=== PATIENT | male | born 1990 | race Caucasian/White ===

== ENCOUNTER 2023-01-10 08:54 | Inpatient (IN) ==
[2023-01-10] MEDS ORDERED: IOPAMIDOL 100 ML BOTTLE IV ONE (08:55)
--- NOTE | 2023-01-10 09:04 | Emergency Department Note ---
HPI General Chief complaint: Nausea/Vomiting/Diarrhea Stated complaint: Abd pain Time Seen by Provider: 01/10/23 09:04 Source: patient Mode of arrival: ambulatory Limitations: no limitations History of Present Illness HPI Narrative: Narrative: Patient is a 32-year-old male with a history significant for pancreatitis who presents to the emergency department due to epigastric abdominal pain, nausea, and vomiting. He states that his symptoms began on Monday after he had been drinking a significant amount of alcohol last week. He states that he began vomiting, but initially did not have any significant abdominal pain. He states that his pain developed soon after and has been worsening since then. He states that he did vomit a small amount of blood and was concerned about an esophageal tear. He denies chest pain, shortness of breath, or any significant pain anywhere other than his abdomen. States that he has developed tremors, but believes that that is due to the pain. He denies a history of alcohol withdrawal, and states that he does not typically drink daily, but did this last week because he had to put his dog down. He denies any other symptoms or concerns at this time. Related Data Home Medications Medication Instructions Recorded Confirmed Restoril tab PO HSP PRN Insomnia 01/11/23 escitalopram oxalate 10 mg tablet 10 mg PO QDAY 01/11/23 01/11/23 (Lexapro) levetiracetam 250 mg tablet 250 mg PO DAILY 01/11/23 01/11/23 (Keppra) metoclopramide HCl 10 mg tablet 10 mg PO QDAY PRN Acid Reflux 01/11/23 01/11/23 (Reglan) Previous Rx's Medication Instructions Recorded albuterol sulfate 90 mcg/actuation 2 puff inhalation Q6H PRN 06/13/22 aerosol inhaler shortness of breath or wheezing #8.5 grams ondansetron 4 mg disintegrating 4 mg PO Q6H PRN nausea and 06/13/22 tablet vomiting #20 tabs omeprazole 20 mg capsule,delayed 20 mg PO QDAY #30 caps 01/13/23 release ondansetron 4 mg disintegrating 4 mg PO Q8H PRN nausea and 01/13/23 tablet vomiting #14 tabs promethazine 25 mg rectal 25 mg OH Q12H PRN nausea and 01/13/23 suppository vomiting #12 ea sucralfate 1 gram tablet (Carafate) See Rx Instructions .Route 01/13/23 .COMPLEX #30 tabs Allergies Allergy/AdvReac Type Severity Reaction Status Date / Time No Known Drug Allergies Allergy Verified 01/10/23 09:02 Review of Systems ROS ROS Narrative: Narrative: Constitutional: Denies fever or weakness Eyes: Denies eye pain or vision change ENT ED: Denies throat pain, hearing loss or rhinorrhea Cardiovascular: Denies chest pain, dyspnea on exertion, orthopnea or edema Respiratory: Denies shortness of breath or cough Gastrointestinal: Reports abdominal pain, nausea and vomiting; Denies diarrhea, constipation, hematochezia or melena Genitourinary: Denies dysuria, frequency or hematuria Musculoskeletal: Denies back pain or myalgia Integumentary: Denies rash or lesions Neurological: Denies headache, weakness, numbness, confusion, abnormal gait or dizziness PFS Narrative Patient History Narrative: Narrative: Medical/Surgical/Family History All Active Problems (Updated 01/18/23 @ 07:55 by Ramos Tineo MD) Abdominal pain (Acute) Intractable nausea and vomiting (Acute) Pancreatitis (Acute) Breath shortness (Acute) Chest pain (Acute) Pleurisy (Acute) Left upper lobe pneumonia (Acute) Social History Smoking Status: Never smoker Exam Narrative Narrative: Narrative: General Limitations: no limitations General appearance: Present alert and in no apparent distress; Absent anxious, appears intoxicated or sleepy Head Head: Present atraumatic and normocephalic Eye Eye: Present PERRL and EOMI; Absent scleral icterus or nystagmus ENT ENT: Present mucous membranes moist; Absent nasal congestion Neck Neck: Present full ROM; Absent tenderness Chest Chest: Present normal inspection and symmetric chest wall rise; Absent tenderness Respiratory Respiratory: Present normal lung sounds bilaterally; Absent respiratory distress or accessory muscle use Cardiovascular Cardiovascular: Present normal rhythm, tachycardia and normal heart sounds Adbominal Abdominal: Present soft and normal bowel sounds; Absent distention, tenderness, guarding, rebound or rigidity Extremities Extremities: Present normal inspection and full ROM; Absent tenderness Back Back: Present normal inspection and full ROM; Absent tenderness Neurological Neurological: Present alert and oriented X3 Psychiatric Psychiatric: Present normal affect and normal mood Skin Skin: Present warm (WNL), dry and normal color Course Vital Signs Vital signs: Vital Signs Temperature 97.1 F 01/10/23 08:59 Pulse Rate 101 H 01/10/23 08:59 Respiratory Rate 20 01/10/23 08:59 Blood Pressure 151/105 01/10/23 08:59 Pulse Oximetry (%) 99 01/10/23 08:59 Oxygen Delivery Method Room Air 01/10/23 08:59 Temperature 98.4 F 01/12/23 14:21 Pulse Rate 63 01/12/23 14:21 Respiratory Rate 18 01/12/23 14:21 Blood Pressure 127/90 01/12/23 14:21 Pulse Oximetry (%) 97 01/12/23 14:21 Oxygen Delivery Method Room Air 01/12/23 14:21 Oxygen Flow Rate (L/min) 0 01/11/23 20:00 [facility] MDM Narrative Medical decision making narrative: Narrative: Patient is a 32-year-old male with a history significant for pancreatitis who presents to the emergency department due to epigastric abdominal pain, nausea, and vomiting. Differential diagnoses include pancreatitis, esophagitis, gastritis, peptic ulcer disease, gallbladder disease, and hepatic pathology. Patient's symptoms began to improve with dilaudid, fluids, and antinausea medication. He stated that reglan and benadryl helped the most with nausea. His labs are significant for a lipase of 808. He continued to have return of pain, nausea, and vomiting despite multiple doses of medications. He had received zofran then reglan and benadryl. His nausea and vomiting returned, so I did speak to Dr. Collins who asked that we continue to try to treat his symptoms in the emergency department. Patient then received phenergan, then haldol, and finally redosed with reglan and benadryl. He continued to have nausea and vomiting. Due to pancreatitis and intractable nausea and vomiting I contacted Dr. Collins again, who requested CT abdomen and pelvis. CT abdomen and pelvis shows pancreatitis. I again spoke with Dr. Collins and he has agreed to see and evaluate patient for admission. Lab Data 01/10/23 09:31 Labs: Lab Results 01/10/23 01/10/23 01/10/23 Range/Units 09:30 09:31 09:31 WBC 9.8 (4.5-11.0) K/mcL RBC 4.75 (4.63-6.08) M/mcL Hgb 15.9 (13.7-17.5) g/dL Hct 46.1 (40.1-51.0) % POC Hct (41-55) MCV 97.1 (80.0-100.0) fL MCH 33.5 (26.0-34.0) pg MCHC 34.5 (31.0-36.0) g/dL RDW 11.6 (11.5-14.5) % Plt Count 176 (140-440) K/mcL MPV 11.0 (8.8-12.5) fL Immature Gran % (Auto) 0.5 (0.0-0.5) % Neut % (Auto) 86.7 H (38.0-78.0) % Lymph % (Auto) 4.8 L (15.5-49.0) % [place] % (Auto) 7.8 (1.0-12.0) % Eos % (Auto) 0.1 (0.0-7.0) % Baso % (Auto) 0.1 (0.0-2.0) % Lymph # (Auto) 0.47 L (1.50-4.80) K/mcL [place] # (Auto) 0.76 (0.10-0.90) K/mcL Eos # (Auto) 0.01 (0.00-0.70) K/mcL Baso # (Auto) 0.01 (0.00-0.30) K/mcL Immature Gran # 0.05 (0.00-0.05) K/mcl Absolute Neutrophils 8.47 H (1.80-8.00) K/mcL POC Sodium (133-145) POC Potassium (3.3-5.1) POC Chloride (96-108) POC Total CO2 (22-30) POC BUN (6-20) POC Creatinine (0.6-1.2) POC Glucose (70-105) POC WB Ioniz Calcium (1.16-1.32) Total Bilirubin 1.6 H (0.1-1.0) mg/dL Direct Bilirubin 0.5 H (<0.3) mg/dL AST 90 H (<40) U/L ALT 112 H (<40) U/L Alkaline Phosphatase 112 (39-117) U/L Total Protein 9.4 H (5.9-8.4) gm/dL Albumin 5.4 H (3.2-5.2) gm/dL Globulin 4.0 H (2.2-3.7) gm/dL Lipase 808 H (7-60) U/L Ethyl Alcohol mg/dL < 10.0 mg/dL Ethyl Alcohol g/dL < 0.010 (<0.010) gm/dL 01/10/23 Range/Units 09:35 WBC (4.5-11.0) K/mcL RBC (4.63-6.08) M/mcL Hgb (13.7-17.5) g/dL Hct (40.1-51.0) % POC Hct 50.0 (41-55) MCV (80.0-100.0) fL MCH (26.0-34.0) pg MCHC (31.0-36.0) g/dL RDW (11.5-14.5) % Plt Count (140-440) K/mcL MPV (8.8-12.5) fL Immature Gran % (Auto) (0.0-0.5) % Neut % (Auto) (38.0-78.0) % Lymph % (Auto) (15.5-49.0) % Jun[place] % (Auto) (1.0-12.0) % Eos % (Auto) (0.0-7.0) % Baso % (Auto) (0.0-2.0) % Lymph # (Auto) (1.50-4.80) K/mcL [place] # (Auto) (0.10-0.90) K/mcL Eos # (Auto) (0.00-0.70) K/mcL Baso # (Auto) (0.00-0.30) K/mcL Immature Gran # (0.00-0.05) K/mcl Absolute Neutrophils (1.80-8.00) K/mcL POC Sodium 137 (133-145) POC Potassium 3.8 (3.3-5.1) POC Chloride 100 (96-108) POC Total CO2 16.0 L (22-30) POC BUN 10 (6-20) POC Creatinine 0.6 (0.6-1.2) POC Glucose 171 H (70-105) POC WB Ioniz Calcium 1.15 L (1.16-1.32) Total Bilirubin (0.1-1.0) mg/dL Direct Bilirubin (<0.3) mg/dL AST (<40) U/L ALT (<40) U/L Alkaline Phosphatase (39-117) U/L Total Protein (5.9-8.4) gm/dL Albumin (3.2-5.2) gm/dL Globulin (2.2-3.7) gm/dL Lipase (7-60) U/L Ethyl Alcohol mg/dL mg/dL Ethyl Alcohol g/dL (<0.010) gm/dL EKG Data EKG #1: EKG attestation: Yes I reviewed and interpreted this EKG. EKG results narrative: Patient had a significant amount of background noise due to tremors. Normal sinus rhythm with a rate of 72, normal axis, unknown OH, QRS of 104, QTc of 480, absence of T wave abnormality or ST elevation or depression. Discharge Plan Patient/Caregiver Discharge Instructions Pt seen by BEEF KILLER/PA only: No Clinical Impression: Pancreatitis, Intractable nausea and vomiting Activity: increase activity as tolerated Patient Disposition: Xfer As Inpt ([facility]) Condition: Fair Discharge Date/Time: 01/10/23 18:00
[2023-01-10] MEDS ORDERED: 0.9 % SODIUM CHLORIDE 500 ML IV ONE (09:06)
[2023-01-10] MEDS ORDERED: ONDANSETRON 4 MG/2 ML VIAL IV ONE (09:06)
[2023-01-10] MEDS ORDERED: 0.9 % SODIUM CHLORIDE 1,000 ML IV ONE (09:07)
[2023-01-10 09:37] LABS: POC Calcium, Ionized 1.15 (1.16-1.32); POC Creatinine 0.6 (0.6-1.2); POC Potassium 3.8 (3.3-5.1)
[2023-01-10] MEDS ORDERED: HYDROmorphone 0.5 MG/0.5 ML SYRINGE IV ONE ×2 (10:01→12:10)
[2023-01-10] MEDS ORDERED: METOCLOPRAMIDE 10 MG/2 ML VIAL IV ONE ×2 (10:01→15:33)
[2023-01-10] MEDS ORDERED: diphenhydrAMINE 50 MG/ML VIAL IV ONE ×2 (10:01→15:33)
[2023-01-10 10:04] LABS: Basophils # (Auto) 0.01 K/mcL (0.00-0.30); Basophils % (Auto) 0.1 % (0.0-2.0); Eosinophils # (Auto) 0.01 K/mcL (0.00-0.70); Eosinophils % (Auto) 0.1 % (0.0-7.0); Hematocrit 46.1 % (40.1-51.0); Hemoglobin 15.9 g/dL (13.7-17.5); Lymphocytes # (Auto) 0.47 K/mcL (1.50-4.80); Lymphocytes % (Auto) 4.8 % (15.5-49.0); Mean Cell Volume 97.1 fL (80.0-100.0); Mean Corpuscular HGB Conc 34.5 g/dL (31.0-36.0); Monocytes # (Auto) 0.76 K/mcL (0.10-0.90); Monocytes % (Auto) 7.8 % (1.0-12.0); Neutrophils % (Auto) 86.7 % (38.0-78.0); Platelet Count 176 K/mcL (140-440); RBC 4.75 M/mcL (4.63-6.08); Red Cell Distribution Width 11.6 % (11.5-14.5); WBC 9.8 K/mcL (4.5-11.0)
[2023-01-10 10:29] LABS: Alcohol, Blood < 10.0 mg/dL; Alcohol,Blood < 0.010 gm/dL (<0.010)
[2023-01-10 10:30] LABS: ALT/SGPT 112 U/L (<40); AST/SGOT 90 U/L (<40); Albumin 5.4 gm/dL (3.2-5.2); Alkaline Phosphatase 112 U/L (39-117); Bilirubin,Direct 0.5 mg/dL (<0.3); Bilirubin,Total 1.6 mg/dL (0.1-1.0)
[2023-01-10] MEDS ORDERED: LACTATED RINGERS 1,000 ML IV ONE ×2 (10:47→14:00)
[2023-01-10] MEDS ORDERED: PROMETHAZINE 25 MG/ML VIAL IV ONE (12:10)
[2023-01-10] MEDS ORDERED: HALOPERIDOL LACTATE 5 MG/ML VIAL IV ONE (13:59)
--- NOTE | 2023-01-10 15:26 | Cat Scan Report ---
CLINICAL INFORMATION: Abdominal pain. Pancreatitis COMPARISON: 06/06/2022 TECHNIQUE: Following enteric contrast, 80 cc of Isovue-370 were injected intravenously, and 60 seconds later, 0.625 mm helical slices were obtained from the mid heart through the subtrochanteric regions. Following reconstruction, 2.5 mm sagittal, coronal and axial reformatted images were processed and reviewed at bone, lung and soft tissue windows. Five minutes later, 0.625 mm helical slices were obtained from the mid heart through the kidneys and viewed at soft tissue windows.The exam was performed using radiation dose optimization techniques including, but not limited to, automated exposure control, adjustment of the mA and/or kV according to patient size and use of iterative reconstruction technique. FINDINGS: The lung bases are clear. No effusions. The visualized heart is grossly normal. There is mild concentric wall thickening of the distal esophagus suggesting peptic disease. Abdominal images show moderate hepatomegaly with severe fatty infiltration of the liver. No focal hepatic lesions. The gallbladder and bile ducts are normal colon CBD is 5 mm. Pancreas demonstrates inhomogeneous attenuation with moderate fluid in the peripancreatic fat planes particularly the distal body and tail region. Findings compatible with acute interstitial pancreatitis. Pancreatic duct is normal caliber and there is no evidence of necrosis, abscess or pseudocyst. Both kidneys, adrenal glands, spleen and aorta, including aortic branches, are normal in size, configuration and attenuation without focal lesion. There is no free air or adenopathy. Pelvic images show prostate, seminal vesicles and urinary bladder are normal. The stomach, small bowel, appendix region and large bowel are all grossly normal. Bone windows show no osseous abnormality. IMPRESSION: Moderate acute interstitial pancreatitis. No necrosis, pseudocyst or other complication. Moderate hepatomegaly with severe diffuse fatty infiltration in the liver-slight progression from previous exam. Interpreted and Authenticated by: Jarrett Krause 01/10/23
--- NOTE | 2023-01-10 16:36 | Internal Med History&Physical ---
HPI History of Present Illness Patient information: Note initiated : 01/10/23 at 4:32 pm Service Date, if different from initiated Date: [] Patient: Angus Corado a 32 y/o M admitted on for Abd pain. Chief Complaint: [] Chief complaint: Abd Pain, N/V History of present illness: Mr. Corado is a 32 year old M with a Hx of seizures (on Keppra) and EtOH abuse. Pt presents with 1-2 days N/V/Abd Pain following an alcohol binge. Workup in the ER is notable for CT A/P with interstitial pancreatic inflammation and fatty infiltration of the liver with hepatomegaly. Lipase is 808. Pt has had N/V in ER and therefore ER has requested admission. Constitutional Constitutional: Present as per HPI EENT Eyes: Present as per HPI Cardiovascular Cardiovascular: Present as per HPI Respiratory Respiratory: Present as per HPI Gastrointestinal Gastrointestinal: Present abdominal pain, heartburn and vomiting Integumentary Integumentary: Present as per HPI Neurological Neurological: Present as per HPI PFSH PFSH All Active Problems (Updated 08/13/22 @ 16:46 by NICOLE Lay) Pancreatitis (Acute) Breath shortness (Acute) Chest pain (Acute) Pleurisy (Acute) Left upper lobe pneumonia (Acute) Social History smoking status: Never smoker MEDS/ALLERGIES Home Medications and Allergies Home Medications Medication Instructions Recorded Confirmed Type hydrocodone 5 mg-acetaminophen 325 1 tab PO TID PRN pain #10 tabs 03/23/22 Rx mg tablet albuterol sulfate 90 mcg/actuation 2 puff inhalation Q6H PRN 06/13/22 Rx aerosol inhaler shortness of breath or wheezing #8.5 grams ondansetron 4 mg disintegrating 4 mg PO Q6H PRN nausea and 06/13/22 Rx tablet vomiting #20 tabs cefdinir 300 mg capsule 300 mg PO Q12H #14 caps 08/13/22 Rx doxycycline monohydrate 100 mg 100 mg PO BID Infection #20 tabs 08/13/22 Rx tablet Allergies Allergy/AdvReac Type Severity Reaction Status Date / Time No Known Drug Allergies Allergy Verified 01/10/23 09:02 EXAM Constitutional Vitals: Temp Pulse Resp BP Pulse Ox O2 Del Method 97.1 F 93 H 20 157/90 100 Room Air 01/10/23 08:59 01/10/23 15:31 01/10/23 08:59 01/10/23 15:31 01/10/23 15:31 01/10/23 08:59 General appearance: no acute distress Head Head exam: Present atraumatic, normal inspection and normocephalic Respiratory Respiratory exam: Present normal respiratory exam and CTAB Cardiovascular Cardiovascular exam: Present normal rate and rhythm GI/Abdominal GI/Abdominal exam: Present diminished bowel sounds and tenderness DATA Data Completed and Pending Labs: Labs from last 24 hours 01/10/23 01/10/23 01/10/23 09:35 09:31 09:31 WBC 9.8 RBC 4.75 Hgb 15.9 Hct 46.1 POC Hct 50.0 MCV 97.1 MCH 33.5 MCHC 34.5 RDW 11.6 Plt Count 176 MPV 11.0 Immature Gran % (Auto) 0.5 Neut % (Auto) 86.7 H Lymph % (Auto) 4.8 L [place] % (Auto) 7.8 Eos % (Auto) 0.1 Baso % (Auto) 0.1 Lymph # (Auto) 0.47 L [place] # (Auto) 0.76 Eos # (Auto) 0.01 Baso # (Auto) 0.01 Immature Gran # 0.05 Absolute Neutrophils 8.47 H POC Sodium 137 POC Potassium 3.8 POC Chloride 100 POC Total CO2 16.0 L POC BUN 10 POC Creatinine 0.6 POC Glucose 171 H POC WB Ioniz Calcium 1.15 L Total Bilirubin Direct Bilirubin AST ALT Alkaline Phosphatase Total Protein Albumin Globulin Lipase Ethyl Alcohol mg/dL < 10.0 Ethyl Alcohol g/dL < 0.010 01/10/23 09:30 WBC RBC Hgb Hct POC Hct MCV MCH MCHC RDW Plt Count MPV Immature Gran % (Auto) Neut % (Auto) Lymph % (Auto) [place] % (Auto) Eos % (Auto) Baso % (Auto) Lymph # (Auto) [place] # (Auto) Eos # (Auto) Baso # (Auto) Immature Gran # Absolute Neutrophils POC Sodium POC Potassium POC Chloride POC Total CO2 POC BUN POC Creatinine POC Glucose POC WB Ioniz Calcium Total Bilirubin 1.6 H Direct Bilirubin 0.5 H AST 90 H ALT 112 H Alkaline Phosphatase 112 Total Protein 9.4 H Albumin 5.4 H Globulin 4.0 H Lipase 808 H Ethyl Alcohol mg/dL Ethyl Alcohol g/dL A/P Assessment and plan (1) Pancreatitis: Assessment and plan: - IVF - pain control - antiemetics Status: Acute Time Spent With Patient Time: Total time spent is greater than 50% in coordination of care (as documented) at patient's floor/unit and/or counseling patient: Initial: Total time with patient: 40 - 54 minutes
[2023-01-10] MEDS ORDERED: ACETAMINOPHEN 325 MG TABLET PO PRN (18:04)
[2023-01-10] MEDS ORDERED: MAGNESIUM HYDROXIDE 30 ML ORAL.SUSP PO PRN (18:04)
[2023-01-10] MEDS: 0.9 % SODIUM CHLORIDE 1,000 ML IV SCH (18:13)
[2023-01-10] MEDS: HYDROmorphone 1 MG/ML SYRINGE IV PRN ×3 (18:14→23:13)
[2023-01-10] MEDS: traZODone HCL 50 MG TABLET PO PRN (21:03)
[2023-01-10] MEDS: PROCHLORPERAZINE 10 MG/2 ML VIAL IV PRN (21:10)
[2023-01-10] MEDS: levETIRAcetam 500 MG in 0.9 % SODIUM CHLORIDE 100 ML IV SCH (23:14)
[2023-01-11] MEDS: HYDROmorphone 1 MG/ML SYRINGE IV PRN ×7 (01:01→22:31)
[2023-01-11] MEDS: ONDANSETRON 4 MG/2 ML VIAL IV PRN ×4 (01:01→18:32)
[2023-01-11] MEDS: 0.9 % SODIUM CHLORIDE 1,000 ML IV SCH ×5 (01:04→23:37)
[2023-01-11] MEDS: 0.9 % SODIUM CHLORIDE 10 ML SYRINGE IV SCH ×8 (01:06→20:02)
[2023-01-11] MEDS: PROCHLORPERAZINE 10 MG/2 ML VIAL IV PRN ×4 (04:11→21:34)
[2023-01-11 08:10] LABS: Ferritin 724.3 ng/mL (30.0-400.0)
[2023-01-11 08:11] LABS: Basophils # (Auto) 0.01 K/mcL (0.00-0.30); Basophils % (Auto) 0.2 % (0.0-2.0); Eosinophils # (Auto) 0.03 K/mcL (0.00-0.70); Eosinophils % (Auto) 0.5 % (0.0-7.0); Hematocrit 36.1 % (40.1-51.0); Hemoglobin 12.4 g/dL (13.7-17.5); Lymphocytes # (Auto) 0.96 K/mcL (1.50-4.80); Mean Corpuscular HGB Conc 34.3 g/dL (31.0-36.0); Mean Platelet Volume 11.2 fL (8.8-12.5); Monocytes # (Auto) 0.57 K/mcL (0.10-0.90); Monocytes % (Auto) 8.9 % (1.0-12.0); Neutrophils % (Auto) 75.2 % (38.0-78.0); Platelet Count 102 K/mcL (140-440); RBC 3.61 M/mcL (4.63-6.08); Red Cell Distribution Width 11.9 % (11.5-14.5); WBC 6.4 K/mcL (4.5-11.0)
[2023-01-11] MEDS: levETIRAcetam 500 MG in 0.9 % SODIUM CHLORIDE 100 ML IV SCH ×2 (08:48→21:34)
[2023-01-11] MEDS: FOLIC ACID 1 MG TABLET PO SCH (08:48)
[2023-01-11] MEDS: ENOXAPARIN 40 MG/0.4 ML SYRINGE SQ SCH (08:49)
[2023-01-11 08:51] LABS: ALT/SGPT 60 U/L (<40); AST/SGOT 43 U/L (<40); Albumin/Globulin Ratio 1.6 (1.0-2.3); Alkaline Phosphatase 76 U/L (39-117); Bilirubin,Total 0.9 mg/dL (0.1-1.0); Blood Urea Nitrogen 9 mg/dL (6-20); Carbon Dioxide 23 mmol/L (22-30); Chloride 105 mmol/L (96-108); Globulin 2.5 gm/dL (2.2-3.7); Glomerular Filtration Rate 143; Glucose 81 mg/dL (70-105); Iron 82 ug/dL (61-157); Phosphorous 2.7 mg/dL (2.5-4.5)
[2023-01-11] MEDS: THIAMINE 100 MG in 0.9 % SODIUM CHLORIDE 50 ML IV SCH (09:47)
[2023-01-11] MEDS ORDERED: PHENobarb/HYOSCY/ATROPINE/SCOP 1 DOSE BOTTLE PO ONE (10:25)
[2023-01-11] MEDS ORDERED: POTASSIUM CHLORIDE 20 MEQ TABLET PO ONE (11:47)
[2023-01-11] MEDS ORDERED: MAGNESIUM SULFATE 8.12 MEQ/2 ML VIAL IV ONE (11:48)
--- NOTE | 2023-01-11 11:51 | Internal Med Progress Note ---
SUBJECTIVE Subjective Patient information: Note initiated : 01/11/23 at 11:48 am Service Date, if different from initiated Date: [] Patient: Angus Corado 32 y/o M admitted on 01/10/23 for Abd pain. Chief Complaint: [] Interval history: Mr. Corado is a 32 year old M with a Hx of seizures (on Keppra) and EtOH abuse. Pt presents with 1-2 days N/V/Abd Pain following an alcohol binge. Workup in the ER is notable for CT A/P with interstitial pancreatic inflammation and fatty infiltration of the liver with hepatomegaly. Lipase is 808. Pt has had N/V in ER and therefore ER has requested admission. Jan 11, improved pain, N/V. Will start CLD. Pt requesting GI cocktail for esophageal pain. Constitutional Vitals: Vital Signs Temp Pulse Resp BP Pulse Ox O2 Del Method 98.2 F 80 12 119/78 96 Room Air 01/11/23 07:35 01/11/23 07:35 01/11/23 07:35 01/11/23 07:35 01/11/23 07:35 01/11/23 08:00 Period Temp Pulse Resp BP Sys/Campo Pulse Ox O2 Del Method O2 Flow Rate Last 24 Hr 97.5 F-98.4 F 65-107 12-16 119-188/75-153 96-100 Room Air-Room Air Intake and Output 01/10/23 01/11/23 01/11/23 19:59 03:59 11:59 Intake Total 1999 1105 1105 Balance 1999 1105 1105 Weight 71.214 kg 71.214 kg Intake & Output: Intake & Output 01/10/23 01/11/23 01/11/23 19:59 03:59 11:59 Intake Total 1999 1105 1105 Balance 1999 1105 1105 Weight 71.214 kg 71.214 kg Intake: IV 1999 1105 1105 Sodium Chloride 0.9% 1,000 ml @ 1000 1000 166 mls/hr IV .Q6H2M EDIE Rx#: [id number] Lactated Ringers 1,000 ml @ 2000 Wide Open IV BOLUS ONE Rx#: [id number] Keppra 500 mg In Sodium 105 105 Chloride 0.9% 100 ml @ 200 mls/ hr IV BID EDIE Rx#:[id number] Oral 0 Other: # Voids 1 # Unmeasured Emesis 1 # Emeses 1 General appearance: no acute distress Head Head exam: Present atraumatic, normal inspection and normocephalic ENT ENT exam: Present mucous membranes moist Respiratory Respiratory exam: Present normal respiratory exam and CTAB Cardiovascular Cardiovascular exam: Present normal rate and rhythm GI/Abdominal GI/Abdominal exam: Present normal bowel sounds, soft and tenderness Neurological Exam Neurological exam: Present CN II-XII intact and oriented X3 OBJ DATA Labs 01/11/23 05:34 01/11/23 05:34 Labs: Abnormal Lab Results 01/11/23 01/11/23 01/10/23 05:34 05:34 09:35 RBC 3.61 L Hgb 12.4 L Hct 36.1 L MCH 34.3 H Plt Count 102 L Neut % (Auto) Lymph % (Auto) 15.0 L Lymph # (Auto) 0.96 L Absolute Neutrophils Potassium 3.1 L POC Total CO2 16.0 L Creatinine 0.5 L POC Glucose 171 H POC WB Ioniz Calcium 1.15 L Ferritin 724.3 H Total Bilirubin Direct Bilirubin AST 43 H ALT 60 H Total Protein Albumin Globulin Lipase 01/10/23 01/10/23 09:31 09:30 RBC Hgb Hct MCH Plt Count Neut % (Auto) 86.7 H Lymph % (Auto) 4.8 L Lymph # (Auto) 0.47 L Absolute Neutrophils 8.47 H Potassium POC Total CO2 Creatinine POC Glucose POC WB Ioniz Calcium Ferritin Total Bilirubin 1.6 H Direct Bilirubin 0.5 H AST 90 H ALT 112 H Total Protein 9.4 H Albumin 5.4 H Globulin 4.0 H Lipase 808 H Meds: Medications Acetaminophen (Acetaminophen 325 Mg Tablet) 650 mg PO Q6HP PRN; Protocol PRN Reason: Per Pain Protocol/Fever > 101 Enoxaparin Sodium (Enoxaparin 40 Mg/0.4 Ml Syringe) 40 mg SQ DAILY [facility] Last Admin: 01/11/23 08:49 Dose: 40 mg Folic Acid (Folic Acid 1 Mg Tablet) 1 mg PO DAILY [facility] Last Admin: 01/11/23 08:48 Dose: 1 mg Hydromorphone HCl (Hydromorphone 1 Mg/Ml Syringe) 1 mg IV Q4HP PRN; Protocol PRN Reason: Per Pain Protocol Last Admin: 01/11/23 10:44 Dose: 1 mg Sodium Chloride (Sodium Chloride 0.9%) 1,000 mls @ 166 mls/hr IV .Q6H2M EDIE Last Admin: 01/11/23 07:06 Dose: 166 mls/hr Levetiracetam 500 mg/ Sodium (Chloride) 105 mls @ 200 mls/hr IV BID [facility] Last Infusion: 01/11/23 09:47 Dose: Infused Thiamine HCl 100 mg/ Sodium (Chloride) 51 mls @ 50 mls/hr IV DAILY EDIE Stop: 01/13/23 10:02 Last Admin: 01/11/23 09:47 Dose: 50 mls/hr Magnesium Hydroxide (Magnesium Hydroxide 30 Ml Oral.Susp) 30 ml PO DAILYP PRN PRN Reason: Constipation Ondansetron HCl (Ondansetron 4 Mg/2 Ml Vial) 4 mg IV Q6HP PRN PRN Reason: Nausea And Vomiting Last Admin: 01/11/23 07:06 Dose: 4 mg Prochlorperazine (Prochlorperazine 10 Mg/2 Ml Vial) 5 mg IV Q4HP PRN PRN Reason: Nausea And Vomiting Last Admin: 01/11/23 09:07 Dose: 5 mg Sodium Chloride (0.9 % Sodium Chloride 10 Ml Syringe) 10 ml IV Q8 [facility] Last Admin: 01/11/23 06:12 Dose: Not Given Sodium Chloride (0.9 % Sodium Chloride 10 Ml Syringe) 10 ml IV Q8 [facility] Last Admin: 01/11/23 06:13 Dose: Not Given Trazodone HCl (Trazodone Hcl 50 Mg Tablet) 50 mg PO HSP PRN PRN Reason: Insomnia Last Admin: 01/10/23 21:03 Dose: 50 mg A/P Assessment and plan (1) Pancreatitis: Assessment and plan: - start CLD - IVF - pain control Status: Acute Time Spent With Patient Time: Total time spent is greater than 50% in coordination of care (as documented) at patient's floor/unit and/or counseling patient: QUALITY VTE Deep Vein Thrombosis/Pulmonary Embolism Present on Admission: No
[2023-01-11] MEDS ORDERED: MAGNESIUM SULFATE 8.12 MEQ in DEXTROSE 5% IN WATER 50 ML IV ONE (12:00)
--- NOTE | 2023-01-11 14:49 | Internal Med Progress Note ---
SUBJECTIVE Subjective Patient information: Note initiated : 01/11/23 at 2:42 pm Service Date, if different from initiated Date: [] Patient: Angus Corado a 32 y/o M admitted on 01/10/23 for Abd pain. Chief Complaint: [] Interval history: Mr. Corado is a 32 year old M with a Hx of seizures (on Keppra) and EtOH abuse. Pt presents with 1-2 days N/V/Abd Pain following an alcohol binge. Workup in the ER is notable for CT A/P with interstitial pancreatic inflammation and fatty infiltration of the liver with hepatomegaly. Lipase is 808. Pt has had N/V in ER and therefore ER has requested admission. Jan 1, improved pain, N/V. Will start CLD. Pt requesting GI cocktail for esophageal pain. / Review of Systems: denies headache/fever/chills/nausea/vomiting/chest or abdominal pain/cough/dyspnea/diarrhea. Otherwise see above. PHYSICAL EXAM: General: Alert, Awake, No acute Distress Eyes/N/T: EOMI, no scleral icterus, Head/Neck: neck supple, full rom CV: RRR, No murmurs, Pulm: Clear b/l, no wheezing/rhonchi/rales, no respiratory distress Abd: soft, tender, +BS x4 Ext: no clubbing/cyanosis/edema, nontender Neuro: Alert, no focal deficits, moves all extremities, sensations intact b/l upper/lower Psychiatric: Skin: warm/dry, normal color Constitutional Vitals: Vital Signs Temp Pulse Resp BP Pulse Ox O2 Del Method 97.7 F 81 14 124/85 97 Room Air 01/11/23 11:46 01/11/23 11:46 01/11/23 11:46 01/11/23 11:46 01/11/23 11:46 01/11/23 11:46 Period Temp Pulse Resp BP Sys/Campo Pulse Ox O2 Del Method O2 Flow Rate Last 24 Hr 97.5 F-98.4 F 68-98 12-16 119-165/78-121 96-100 Room Air-Room Air Intake and Output 01/11/23 01/11/23 01/11/23 03:59 11:59 19:59 Intake Total 1105 1105 643 Output Total 400 Balance 1105 1105 243 Weight 71.214 kg 71.214 kg Patient Weight 01/12/23 03:59 Weight 71.214 kg Intake & Output: Intake & Output 01/11/23 01/11/23 01/11/23 03:59 11:59 19:59 Intake Total 1105 1105 643 Output Total 400 Balance 1105 1105 243 Weight 71.214 kg 71.214 kg Intake: IV 1105 1105 103 Sodium Chloride 0.9% 1,000 ml @ 1000 1000 166 mls/hr IV .Q6H2M [facility] Rx#: [id number] Magnesium Sulfate 8.12 Meq In 52 Dextrose 5% in Water 50 ml @ 50 mls/hr IV ONCE ONE Rx#: [id number] Vitamin B1 100 mg In Sodium 51 Chloride 0.9% 50 ml @ 50 mls/hr IV DAILY [facility] Rx#:[id number] Keppra 500 mg In Sodium 105 105 Chloride 0.9% 100 ml @ 200 mls/ hr IV BID [facility] Rx#:[id number] Oral 0 540 Output: Void Amount 400 Other: Meal Breakfast Percent of Meal Consumed 50% Feeding Ability Independent Urine Appearance Clear Urine Color Dark Keila Urine Odor Strong # Voids 1 OBJ DATA Labs 01/11/23 05:34 01/11/23 05:34 Labs: Abnormal Lab Results 01/11/23 01/11/23 01/10/23 05:34 05:34 09:35 RBC 3.61 L Hgb 12.4 L Hct 36.1 L MCH 34.3 H Plt Count 102 L Neut % (Auto) Lymph % (Auto) 15.0 L Lymph # (Auto) 0.96 L Absolute Neutrophils Potassium 3.1 L POC Total CO2 16.0 L Creatinine 0.5 L POC Glucose 171 H POC WB Ioniz Calcium 1.15 L Ferritin 724.3 H Total Bilirubin Direct Bilirubin AST 43 H ALT 60 H Total Protein Albumin Globulin Lipase 01/10/23 01/10/23 09:31 09:30 RBC Hgb Hct MCH Plt Count Neut % (Auto) 86.7 H Lymph % (Auto) 4.8 L Lymph # (Auto) 0.47 L Absolute Neutrophils 8.47 H Potassium POC Total CO2 Creatinine POC Glucose POC WB Ioniz Calcium Ferritin Total Bilirubin 1.6 H Direct Bilirubin 0.5 H AST 90 H ALT 112 H Total Protein 9.4 H Albumin 5.4 H Globulin 4.0 H Lipase 808 H Meds: Medications Acetaminophen (Acetaminophen 325 Mg Tablet) 650 mg PO Q6HP PRN; Protocol PRN Reason: Per Pain Protocol/Fever > 101 Last Admin: 01/11/23 13:07 Dose: 650 mg Enoxaparin Sodium (Enoxaparin 40 Mg/0.4 Ml Syringe) 40 mg SQ DAILY [facility] Last Admin: 01/11/23 08:49 Dose: 40 mg Folic Acid (Folic Acid 1 Mg Tablet) 1 mg PO DAILY [facility] Last Admin: 01/11/23 08:48 Dose: 1 mg Hydromorphone HCl (Hydromorphone 1 Mg/Ml Syringe) 1 mg IV Q4HP PRN; Protocol PRN Reason: Per Pain Protocol Last Admin: 01/11/23 14:34 Dose: 1 mg Sodium Chloride (Sodium Chloride 0.9%) 1,000 mls @ 166 mls/hr IV .Q6H2M [facility] Last Admin: 01/11/23 07:06 Dose: 166 mls/hr Levetiracetam 500 mg/ Sodium (Chloride) 105 mls @ 200 mls/hr IV BID [facility] Last Infusion: 01/11/23 09:47 Dose: Infused Thiamine HCl 100 mg/ Sodium (Chloride) 51 mls @ 50 mls/hr IV DAILY [facility] Stop: 01/13/23 10:02 Last Infusion: 01/11/23 12:13 Dose: Infused Magnesium Hydroxide (Magnesium Hydroxide 30 Ml Oral.Susp) 30 ml PO DAILYP PRN PRN Reason: Constipation Ondansetron HCl (Ondansetron 4 Mg/2 Ml Vial) 4 mg IV Q6HP PRN PRN Reason: Nausea And Vomiting Last Admin: 01/11/23 12:46 Dose: 4 mg Prochlorperazine (Prochlorperazine 10 Mg/2 Ml Vial) 5 mg IV Q4HP PRN PRN Reason: Nausea And Vomiting Last Admin: 01/11/23 14:34 Dose: 5 mg Sodium Chloride (0.9 % Sodium Chloride 10 Ml Syringe) 10 ml IV Q8 [facility] Last Admin: 01/11/23 14:18 Dose: Not Given Sodium Chloride (0.9 % Sodium Chloride 10 Ml Syringe) 10 ml IV Q8 [facility] Last Admin: 01/11/23 14:19 Dose: Not Given Trazodone HCl (Trazodone Hcl 50 Mg Tablet) 50 mg PO HSP PRN PRN Reason: Insomnia Last Admin: 01/10/23 21:03 Dose: 50 mg A/P Narrative A/P Narrative: A: *Alcoholic pancreatitis: *Hypokalemia: *Transaminitis: 2/2 fatty liver *?h/o seizure d/o: on keppra at home? *Thrombocytopenia: 2/2 alcoholism * P: -IVF -CIWA, vitamins/minerals -pain control - - -Monitor and replace electrolytes -cont keppra - -ppx: Lovenox Time Spent With Patient Time: Total time spent is greater than 50% in coordination of care (as documented) at patient's floor/unit and/or counseling patient: QUALITY VTE Deep Vein Thrombosis/Pulmonary Embolism Present on Admission: No
--- NOTE | 2023-01-11 15:00 | Discharge Summary ---
Discharge Provider Provider IMPORTANT FOLLOW-UP INFORMATION FOR PCP: Patient information: Note initiated : 01/11/23 at 3:00 pm Service Date, if different from initiated Date: [] Patient: Angus Corado 32 y/o M admitted on 01/10/23 for Abd pain. Chief Complaint: [] Date of admission: 01/10/23 18:00 Discharge date: 01/12/23 Primary care physician: NICOLE Lay COURSE Hospital Course Hospital course: Interval history: Mr. Corado is a 32 year old M with a Hx of seizures (on Keppra) and EtOH abuse. Pt presents with 1-2 days N/V/Abd Pain following an alcohol binge. Workup in the ER is notable for CT A/P with interstitial pancreatic inflammation and fatty infiltration of the liver with hepatomegaly. Lipase is 808. Pt has had N/V in ER and therefore ER has requested admission. Jan 11, improved pain, N/V. Will start CLD. Pt requesting GI cocktail for esophageal pain. 3/2 Tolerating clears. Nausea much improved still mildly present but much better. Occasional heartburn. Lipase improved. Hypokalemia improving. Transaminitis noted. A: *Alcoholic pancreatitis: *Hypokalemia: improved *Transaminitis: 2/2 fatty liver and etoh *h/o seizure d/o: on keppra at home *Thrombocytopenia: 2/2 alcoholism *Depression: P: -Advance diet to low-fat as tolerated. Discharge diagnosis: Alcoholic pancreatitis hypokalemia transaminitis Secondary discharge diagnosis: Question history of seizure disorder, thrombocytopenia Time Spent with Patient Time attestation: Total time spent providing and/or coordinating discharge services: Time spent: Greater than 30 minutes EXAM Constitutional Vitals: Temp Pulse Resp BP Pulse Ox O2 Del Method 97.7 F 81 14 124/85 97 Room Air 01/11/23 11:46 01/11/23 11:46 01/11/23 11:46 01/11/23 11:46 01/11/23 11:46 01/11/23 11:46 Discharge Data Data Completed and Pending Labs on day of discharge: Labs from last 24 hours 01/11/23 01/11/23 05:34 05:34 WBC 6.4 RBC 3.61 L Hgb 12.4 L Hct 36.1 L MCV 100.0 MCH 34.3 H MCHC 34.3 RDW 11.9 Plt Count 102 L MPV 11.2 Immature Gran % (Auto) 0.2 Neut % (Auto) 75.2 Lymph % (Auto) 15.0 L Jerome % (Auto) 8.9 Eos % (Auto) 0.5 Baso % (Auto) 0.2 Lymph # (Auto) 0.96 L Jerome # (Auto) 0.57 Eos # (Auto) 0.03 Baso # (Auto) 0.01 Immature Gran # 0.01 Absolute Neutrophils 4.84 Sodium 142 Potassium 3.1 L Chloride 105 Carbon Dioxide 23 Anion Gap 14.0 BUN 9 Creatinine 0.5 L GFR Calculation 143 Glucose 81 Calcium 9.0 Phosphorus 2.7 Magnesium 1.6 Iron 82 Ferritin 724.3 H Total Bilirubin 0.9 AST 43 H ALT 60 H Alkaline Phosphatase 76 Total Protein 6.5 Albumin 4.0 Globulin 2.5 Albumin/Globulin Ratio 1.6 Discharge Plan Patient/Caregiver Discharge Instructions Activity: increase activity as tolerated Diet: Low Fat Prescriptions: Continued albuterol sulfate 90 mcg/actuation HFA aerosol inhaler 2 puff inhalation Q6H PRN (Reason: shortness of breath or wheezing) Qty: 8.5 0RF ondansetron 4 mg tablet,disintegrating 4 mg PO Q6H PRN (Reason: nausea and vomiting) Qty: 20 0RF Restoril tablet PO HSP PRN (Reason: Insomnia) levetiracetam [Keppra] 250 mg Tablet 250 mg PO DAILY metoclopramide HCl [Reglan] 10 mg tablet 10 mg PO QDAY PRN (Reason: Acid Reflux) escitalopram oxalate [Lexapro] 10 mg tablet 10 mg PO QDAY Follow Up Plan Follow up with: Michele Ware ARNP [Primary Care Provider] - Patient Disposition: Home, Self-Care Prognosis: Fair Overall status at discharge: patient is progressing back to baseline Discharge Orders: Discharge Order (Routine); Ordered 01/12/23 Ordered By: Glenn Bunch [facility] VTE Deep Vein Thrombosis/Pulmonary Embolism Present on Admission: No
[2023-01-11] MEDS: MULTIVIT,THER IRON,CA,FA & MIN 1 TABLET PO SCH (17:02)
[2023-01-11] MEDS ORDERED: diphenhydrAMINE 25 MG CAPSULE PO PRN (19:12)
[2023-01-11] MEDS ORDERED: METOCLOPRAMIDE 10 MG/2 ML VIAL ONE (19:41)
[2023-01-11] MEDS ORDERED: diphenhydrAMINE 25 MG CAPSULE ONE (19:41)
[2023-01-11] MEDS ORDERED: CALCIUM CARBONATE 500 MG TAB.CHEW ONE (19:42)
[2023-01-11] MEDS: CALCIUM CARBONATE 500 MG TAB.CHEW CHEWED PRN (19:50)
[2023-01-11] MEDS: METOCLOPRAMIDE 10 MG/2 ML VIAL IV PRN (19:50)
[2023-01-11] MEDS: BENZONATATE 100 MG CAPSULE PO PRN (20:35)
[2023-01-11] MEDS ORDERED: ESCITALOPRAM 10 MG TABLET PO SCH (21:00)
[2023-01-11] MEDS: traZODone HCL 50 MG TABLET PO PRN (21:34)
[2023-01-12] MEDS: METOCLOPRAMIDE 10 MG/2 ML VIAL IV PRN ×2 (03:28→10:46)
[2023-01-12] MEDS: HYDROmorphone 1 MG/ML SYRINGE IV PRN ×2 (03:29→08:28)
[2023-01-12] MEDS: BENZONATATE 100 MG CAPSULE PO PRN ×2 (03:31→10:44)
[2023-01-12] MEDS: 0.9 % SODIUM CHLORIDE 10 ML SYRINGE IV SCH ×4 (04:11→14:20)
[2023-01-12] MEDS: 0.9 % SODIUM CHLORIDE 1,000 ML IV SCH ×2 (05:45→14:20)
--- NOTE | 2023-01-12 06:48 | EKG ---
[facility] Test Date: 2023-01-10 Pat Name: Angus Corado Department: [facility] Room: 130 Gender: Male [employer] Driver: ALLAN : 1990 Requested By: Ramos Tineo Order Number: [id number] Reading MD: Mohit Mi Measurements Intervals [place] Rate: 72 P: CT: QRS: 82 QRSD: 104 T: 67 QT: 439 QTc: 480 Interpretive Statements Atrial fibrillation Electronically Signed On 01-12-2023 6:48:20 PST by Mohit Mi /[id number]
[2023-01-12 07:04] LABS: Basophils # (Auto) 0.04 K/mcL (0.00-0.30); Basophils % (Auto) 0.6 % (0.0-2.0); Eosinophils % (Auto) 1.6 % (0.0-7.0); Hematocrit 35.9 % (40.1-51.0); Lymphocytes # (Auto) 1.23 K/mcL (1.50-4.80); Lymphocytes % (Auto) 19.3 % (15.5-49.0); Mean Corpuscular HGB Conc 33.4 g/dL (31.0-36.0); Mean Platelet Volume 10.9 fL (8.8-12.5); Monocytes # (Auto) 0.48 K/mcL (0.10-0.90); Monocytes % (Auto) 7.5 % (1.0-12.0); Neutrophils % (Auto) 70.5 % (38.0-78.0); Platelet Count 82 K/mcL (140-440); RBC 3.52 M/mcL (4.63-6.08); Red Cell Distribution Width 11.8 % (11.5-14.5); WBC 6.4 K/mcL (4.5-11.0)
[2023-01-12 07:24] LABS: ALT/SGPT 74 U/L (<40); AST/SGOT 106 U/L (<40); Albumin 3.4 gm/dL (3.2-5.2); Albumin/Globulin Ratio 1.5 (1.0-2.3); Alkaline Phosphatase 72 U/L (39-117); Bilirubin,Direct 0.4 mg/dL (<0.3); Blood Urea Nitrogen 5 mg/dL (6-20); Calcium 8.5 mg/dL (8.6-10.4); Carbon Dioxide 23 mmol/L (22-30); Chloride 103 mmol/L (96-108); Globulin 2.3 gm/dL (2.2-3.7); Glomerular Filtration Rate 157; Glucose 79 mg/dL (70-105); Lactate Dehydrogenase 195 U/L (135-225); Phosphorous 2.6 mg/dL (2.5-4.5); Triglycerides 57 mg/dL (<150); Uric Acid 3.4 mg/dL (2.5-8.0)
[2023-01-12] MEDS: CALCIUM CARBONATE 500 MG TAB.CHEW CHEWED PRN ×2 (08:27→13:39)
[2023-01-12] MEDS: ENOXAPARIN 40 MG/0.4 ML SYRINGE SQ SCH (08:29)
[2023-01-12] MEDS: ONDANSETRON 4 MG/2 ML VIAL IV PRN (08:33)
[2023-01-12] MEDS: FOLIC ACID 1 MG TABLET PO SCH (08:34)
[2023-01-12] MEDS: MULTIVIT,THER IRON,CA,FA & MIN 1 TABLET PO SCH (08:34)
[2023-01-12] MEDS: levETIRAcetam 500 MG in 0.9 % SODIUM CHLORIDE 100 ML IV SCH (08:35)
--- NOTE | 2023-01-12 08:37 | Internal Med Progress Note ---
SUBJECTIVE Subjective Patient information: Note initiated : 01/12/23 at 8:34 am Service Date, if different from initiated Date: [] Patient: Angus Corado 32 y/o M admitted on 01/10/23 for Abd pain. Chief Complaint: [] Interval history: Mr. Corado is a 32 year old M with a Hx of seizures (on Keppra) and EtOH abuse. Pt presents with 1-2 days N/V/Abd Pain following an alcohol binge. Workup in the ER is notable for CT A/P with interstitial pancreatic inflammation and fatty infiltration of the liver with hepatomegaly. Lipase is 808. Pt has had N/V in ER and therefore ER has requested admission. Jan 1, improved pain, N/V. Will start CLD. Pt requesting GI cocktail for esophageal pain. /2 Tolerating clears. Nausea much improved still mildly present but much better. Occasional heartburn. Lipase improved. Hypokalemia improving. Transaminitis noted. Review of Systems: denies headache/fever/chills/nausea/vomiting/chest or abdominal p ain/cough/dyspnea/diarrhea. Otherwise see above. PHYSICAL EXAM: General: Alert, Awake, No acute Distress Eyes/N/T: EOMI, no scleral icterus, Head/Neck: neck supple, full rom CV: RRR, No murmurs, Pulm: Clear b/l, no wheezing/rhonchi/rales, no respiratory distress Abd: soft, tender epi, +BS x4 Ext: no clubbing/cyanosis/edema, nontender Neuro: Alert, no focal deficits, moves all extremities, sensations intact b/l upper/lower Psychiatric: Skin: warm/dry, normal color Constitutional Vitals: Vital Signs Temp Pulse Resp BP Pulse Ox O2 Del Method O2 Flow Rate 97.9 F 67 20 118/77 94 Room Air 0 01/12/23 04:05 01/12/23 04:05 01/12/23 04:05 01/12/23 04:05 01/12/23 04:05 01/12/23 04:05 01/11/23 20:00 Period Temp Pulse Resp BP Sys/Campo Pulse Ox O2 Del Method O2 Flow Rate Last 24 Hr 97.6 F-98.7 F 67-81 14-20 118-137/77-92 94-98 Room Air-Room Air 0 Intake and Output 03/01/23 03/02/23 03/02/23 19:59 03:59 11:59 Intake Total 2123 1105 1800 Output Total 625 350 Balance 1498 1105 1450 Weight 72.575 kg Intake & Output: Intake & Output 01/11/23 01/12/23 01/12/23 19:59 03:59 11:59 Intake Total 2123 1105 1800 Output Total 625 350 Balance 1498 1105 1450 Weight 72.575 kg Intake: IV 1103 1105 1000 Sodium Chloride 0.9% 1,000 ml @ 1000 1000 1000 166 mls/hr IV .Q6H2M [facility] Rx#: [id number] Magnesium Sulfate 8.12 Meq In 52 Dextrose 5% in Water 50 ml @ 50 mls/hr IV ONCE ONE Rx#: [id number] Vitamin B1 100 mg In Sodium 51 Chloride 0.9% 50 ml @ 50 mls/hr IV DAILY [facility] Rx#:[id number] Keppra 500 mg In Sodium 105 Chloride 0.9% 100 ml @ 200 mls/ hr IV BID [facility] Rx#:[id number] Oral 1020 800 Output: Void Amount 625 350 Other: Meal Breakfast Percent of Meal Consumed 50% Feeding Ability Independent Urine Appearance Clear Clear Clear Urine Color Dark Kelia Yellow Dark Keila Urine Odor Strong Normal Strong # Unmeasured Emesis 1 # Emeses 1 OBJ DATA Labs 01/12/23 06:08 01/12/23 06:07 Labs: Abnormal Lab Results 01/12/23 01/12/23 01/11/23 06:08 06:07 05:34 RBC 3.52 L Hgb 12.0 L Hct 35.9 L MCV 102.0 H MCH 34.1 H Plt Count 82 L Neut % (Auto) Lymph % (Auto) Lymph # (Auto) 1.23 L Absolute Neutrophils Potassium 3.1 L POC Total CO2 BUN 5 L Creatinine 0.4 L 0.5 L POC Glucose Calcium 8.5 L POC WB Ioniz Calcium Ferritin 724.3 H Total Bilirubin Direct Bilirubin 0.4 H GGT 434 H AST 106 H 43 H ALT 74 H 60 H Total Protein 5.7 L Albumin Globulin Lipase 130 H 01/11/23 01/10/23 01/10/23 05:34 09:35 09:31 RBC 3.61 L Hgb 12.4 L Hct 36.1 L MCV MCH 34.3 H Plt Count 102 L Neut % (Auto) 86.7 H Lymph % (Auto) 15.0 L 4.8 L Lymph # (Auto) 0.96 L 0.47 L Absolute Neutrophils 8.47 H Potassium POC Total CO2 16.0 L BUN Creatinine POC Glucose 171 H Calcium POC WB Ioniz Calcium 1.15 L Ferritin Total Bilirubin Direct Bilirubin GGT AST ALT Total Protein Albumin Globulin Lipase 01/10/23 09:30 RBC Hgb Hct MCV MCH Plt Count Neut % (Auto) Lymph % (Auto) Lymph # (Auto) Absolute Neutrophils Potassium POC Total CO2 BUN Creatinine POC Glucose Calcium POC WB Ioniz Calcium Ferritin Total Bilirubin 1.6 H Direct Bilirubin 0.5 H GGT AST 90 H ALT 112 H Total Protein 9.4 H Albumin 5.4 H Globulin 4.0 H Lipase 808 H Meds: Medications Acetaminophen (Acetaminophen 325 Mg Tablet) 650 mg PO Q6HP PRN; Protocol PRN Reason: Per Pain Protocol/Fever > 101 Last Admin: 01/11/23 13:07 Dose: 650 mg Benzonatate (Benzonatate 100 Mg Capsule) 200 mg PO TIDP PRN PRN Reason: Cough Last Admin: 01/12/23 03:31 Dose: 200 mg Calcium Carbonate/Glycine (Calcium Carbonate 500 Mg Tab.Chew) 500 mg CHEWED Q4HP PRN PRN Reason: Dyspepsia Last Admin: 01/12/23 08:27 Dose: 500 mg Diphenhydramine HCl (Diphenhydramine 25 Mg Capsule) 25 mg PO Q6HP PRN PRN Reason: Allergic Symptoms Last Admin: 01/11/23 19:50 Dose: 25 mg Enoxaparin Sodium (Enoxaparin 40 Mg/0.4 Ml Syringe) 40 mg SQ DAILY [facility] Last Admin: 01/12/23 08:29 Dose: 40 mg Escitalopram Oxalate (Escitalopram 10 Mg Tablet) 10 mg PO HS [facility] Last Admin: 01/11/23 21:34 Dose: 10 mg Folic Acid (Folic Acid 1 Mg Tablet) 1 mg PO DAILY [facility] Last Admin: 01/11/23 08:48 Dose: 1 mg Hydromorphone HCl (Hydromorphone 1 Mg/Ml Syringe) 1 mg IV Q4HP PRN; Protocol PRN Reason: Per Pain Protocol Last Admin: 01/12/23 08:28 Dose: 1 mg Sodium Chloride (Sodium Chloride 0.9%) 1,000 mls @ 166 mls/hr IV .Q6H2M [facility] Last Admin: 01/12/23 05:45 Dose: 166 mls/hr Levetiracetam 500 mg/ Sodium (Chloride) 105 mls @ 200 mls/hr IV BID [facility] Last Infusion: 01/11/23 22:59 Dose: Infused Thiamine HCl 100 mg/ Sodium (Chloride) 51 mls @ 50 mls/hr IV DAILY [facility] Stop: 01/13/23 10:02 Last Infusion: 01/11/23 12:13 Dose: Infused Iron Carb/Multivit/[place]/Folic Acid (Multivit,Ther Iron,Ca,Fa & Min 1 Tablet) 1 tab PO DAILY [facility] Last Admin: 01/11/23 17:02 Dose: 1 tab Magnesium Hydroxide (Magnesium Hydroxide 30 Ml Oral.Susp) 30 ml PO DAILYP PRN PRN Reason: Constipation Metoclopramide HCl (Metoclopramide 10 Mg/2 Ml Vial) 10 mg IV Q6HP PRN PRN Reason: Nausea And Vomiting Last Admin: 01/12/23 03:28 Dose: 10 mg Ondansetron HCl (Ondansetron 4 Mg/2 Ml Vial) 4 mg IV Q6HP PRN PRN Reason: Nausea And Vomiting Last Admin: 01/12/23 08:33 Dose: 4 mg Prochlorperazine (Prochlorperazine 10 Mg/2 Ml Vial) 5 mg IV Q4HP PRN PRN Reason: Nausea And Vomiting Last Admin: 01/11/23 21:34 Dose: 5 mg Sodium Chloride (0.9 % Sodium Chloride 10 Ml Syringe) 10 ml IV Q8 [facility] Last Admin: 01/12/23 04:11 Dose: Not Given Sodium Chloride (0.9 % Sodium Chloride 10 Ml Syringe) 10 ml IV Q8 [facility] Last Admin: 01/12/23 04:11 Dose: Not Given Trazodone HCl (Trazodone Hcl 50 Mg Tablet) 50 mg PO HSP PRN PRN Reason: Insomnia Last Admin: 01/11/23 21:34 Dose: 50 mg A/P Narrative A/P Narrative: A: *Alcoholic pancreatitis: *Hypokalemia: improved *Transaminitis: 2/2 fatty liver and etoh *h/o seizure d/o: on keppra at home *Thrombocytopenia: 2/2 alcoholism *Depression: P: -IVF -CIWA, vitamins/minerals -pain control -started clear liquid diet yesterday advance to low fat as tolerated - -Monitor and replace electrolytes -cont keppra, continue home SSRI - -ppx: Lovenox (hold if plts <50k) Time Spent With Patient Time: Total time spent is greater than 50% in coordination of care (as documented) at patient's floor/unit and/or counseling patient: Subsequent: Total time with patient: 35 - 49 minutes QUALITY VTE Deep Vein Thrombosis/Pulmonary Embolism Present on Admission: No
[2023-01-12] MEDS: THIAMINE 100 MG in 0.9 % SODIUM CHLORIDE 50 ML IV SCH (10:30)
[2023-01-12] MEDS: PROCHLORPERAZINE 10 MG/2 ML VIAL IV PRN (13:40)
== END 2023-01-12 14:35 | disposition home or self-care (01) | DRG 440 ==
LOC: ED 08:54 → MEDSUR 18:00
PROVIDERS: ADMIT Internal Medicine; ATTEND Internal Medicine